=== PATIENT | male | born 1940 | race Caucasian/White ===

== ENCOUNTER 2016-08-27 09:44 | Emergency (ER) | payer MEDICARE ==
[2016-08-27 10:35] LABS: ALB/GLOB RATIO 1.1 (>1.0); ALBUMIN 3.5 gm/dL (3.5-5.7); CALCIUM 9.1 mg/dL (8.6-10.3)
[2016-08-27 11:01] LABS: ABSOLUTE NEUTROPHIL COUNT 2.2 K/mm3 (1.8-7.7); BASO % 0.9 % (0.2-1.0); EOS % 0.6 % (0.9-2.9); HEMATOCRIT 30.6 % (32.0-52.0); IMM NEUT% 0.6 % (0-1); LYMPH # 0.3 (1.0-4.8); LYMPH % 8.2 % (15-45); MEAN CELL VOLUME 86.2 fl (80.0-94.0); MEAN CORPUSCULAR HEMOGLOBIN 28.2 pg (27.0-31.0); MEAN CORPUSCULAR HGB CONC 32.7 g/dl (33.0-37.0); MEAN PLATELET VOLUME 8.8 fl (7.4-10.4); MONO # 0.8 (0.0-0.8); MONO % 23.9 % (4-12); NEUT % 65.8 % (43-75); PLATELET COUNT 303 K/mm3 (130-400); RED CELL DISTRIBUTION WIDTH 17.2 % (11.5-14.5)
--- NOTE | 2016-08-27 11:20 | RAD ---
EXAMINATION:CHEST - 2 VIEWS CLINICAL INDICATION: Chest pain. Recent completion of radiation therapy for lung carcinoma. COMPARISON:none FINDINGS: The right superior mediastinal mass is significantly diminished in size in comparison to the prior radiograph of 06/28/2016. Lacy reticular opacities within the upper lung zones right greater than left are noted. There is suspected bronchiectasis in the right upper lobe. Biapical emphysematous changes are noted. There is no pleural effusion. The osseous structures are unremarkable for age. IMPRESSION: Considerable reduction in size of the right superior hilar mass in comparison to the prior study of 06/28/2016. Biapical emphysema/scarring is also again noted. No superimposed acute process is identified.
[2016-08-27 11:43] LABS: BAND 13 % (0-10); BASOPHIL 0 % (0-1); EOSINOPHIL 1 % (1-3); LYMPHOCYTE 9 % (15-45); MONOCYTE 20 % (4-12); NEUTROPHILS 57 % (43-75); PLATELET ESTIMATE NORMAL (NORMAL); TOTAL CELLS COUNTED 100
[2016-08-27] MEDS ORDERED: IBUPROFEN 600 MG TABLET ONE (12:19)
== END 2016-08-27 12:45 | disposition home or self-care (01) ==
LOC: ED 09:44
DX: R07.9 Chest pain, unspecified (principal); E78.00 Pure hypercholesterolemia, unspecified; J44.9 Chronic obstructive pulmonary disease, unspecified; N40.0 Benign prostatic hyperplasia without lower urinary tract symptoms; Z85.118 Personal history of other malignant neoplasm of bronchus and lung; Z87.891 Personal history of nicotine dependence; Z79.899 Other long term (current) drug therapy
CPT/HCPCS: 83880; 85025; 80053; 84484; 71020; 99283; 93005; 99284; A9270